=== PATIENT | male | born 1945 | race Caucasian/White ===

== ENCOUNTER 2016-12-09 13:48 | Day surgery (SDC) | payer OTHER ==
[~2016-12-09] VITALS: Ht 165.1 cm; Wt 76.2 kg
[~2016-12-09 13:48] MED LIST: AMLODIPINE BESY10 MG PO; APRESOLINE10 MG PO; APRESOLINE25 MG PO; APRESOLINE50 MG PO; ATIVAN0.5 MG PO; Aspirin Chewable PO; BUTALBITAL-APA1 EACH PO; BYSTOLIC10 MG PO; BYSTOLIC2.5 MG PO; Bystolic PO; CALCIUM ACETAT667 MG PO; CARDURA2 M1 PO; CARDURA4 MG PO; CARDURA8 MG PO; CATAPRES0.1 MG PO; CLONIDINE HCL0.1 MG PO; DIALYVITE 3,001 EACH PO; DIALYVITE TABL1 EACH PO; DIOVAN160 MG PO; DOXAZOSIN MESYLA4 MG PO; DOXAZOSIN MESYLA8 MG PO; FENTANYL1 EAC4 TD; FIORICET,ESG1 TABLET PO; FLOMAX0.4 MG PO; FOSRENOL1000 MG PO; FOSRENOL500 MG PO; HYDRALAZINE HCL50 MG PO; LABETALOL HCL200 MG PO; LASIX20 MG PO; LASIX40 MG PO; LEVEMIR FL100 UNIT/1 SC; LEVEMIR FL100 UNITS/ SC; LEVEMIR100 UNIT/2 SC; LISINOPRIL10 MG PO; LISINOPRIL20 MG PO; LO-DOSE ASPIRIN81 M1 PO; LUNESTA2 MG PO; Lasix PO; MIRALAX17 GM PO; MIRALAX255 GM PO; NIFEDICAL XL30 MG PO; NIFEDIPINE ER60 MG PO; NOVOLOG 10100 UNITS/ SC; NOVOLOG PE100 UNITS/ SC; Norvasc PO; PERCOCET 5/31 TABLET PO; PLAVIX75 MG PO; PRANDIN1 MG PO; PRINIVIL10 MG PO; PROSCAR5 MG PO; PROTONIX40 MG PO; PULMICORT FLE180 MCG IH; Plavix PO; RENVELA800 MG PO; RESTORIL15 MG PO; SENSIPAR30 MG PO; SPIRIVA1 INHALATI IH; ST. JOSEPH ASPI81 MG PO; SYMBICORT60 INHALAT IH; Symbicort 160-4.5 mc IH; TRADJENTA5 MG PO; TRAMADOL HCL50 MG PO; TRIAMTERENE-HC1 EACH PO; TYLENOL EXTRA500 MG PO; VITAMIN D2000 UNIT PO; VITAMIN D32000 UNI1 PO; Vicodin,Norco 5/325 PO; ZESTRIL10 MG PO; ZETIA10 MG PO
[2016-12-09 14:25] LABS: HEMATOCRIT 29.5 % (38.0-50.0); MCH 30.7 PG (29.0-34.0); MCHC 33.9 G/DL (30.0-36.0); MCV 90.5 FL (86-99); MEAN PLAT.VOLUME 9.7 uM^3 (9.0-12.4); PLATELET COUNT 261 K/uL (156-360); RBC DIS.WIDTH-CV 13.6 % (11.8-14.6); RBC DIS.WIDTH-SD 43.9 % (39-53); RED BLOOD COUNT 3.26 M/uL (4.00-5.50); WHITE BLOOD COUNT 11.4 K/uL (4.1-10.2)
[2016-12-09 14:50] LABS: ANION GAP 9 MEQ/L (2-14); CHLORIDE 105 MEQ/L (99-109); GFR ESTIMATE (CALCULATED) 11 mL/min/; GLUCOSE 73 mg/dL (70-99); POTASSIUM 4.9 MEQ/L (3.7-5.4); SAMPLE HEMOLYSIS CHECK 0; SAMPLE ICTERIC CHECK 0; SAMPLE LIPEMIA CHECK 0; SODIUM 140 MEQ/L (136-147); UREA NITROGEN (BUN) 70 mg/dL (9-23)
[2016-12-09] MEDS ORDERED: VITAMIN D31000 UNIT PO (15:07)
[2016-12-09 15:09] VITALS: BP 149/77
[2016-12-09 15:13] LABS: POINT-OF-CARE METER ID UU14174212
[2016-12-09 17:09] LABS: POINT-OF-CARE METER ID UU14174212
[2016-12-09 19:53] VITALS: BP 165/72
[2016-12-09 20:35] VITALS: BP 145/79
[2016-12-12] MEDS ORDERED: LASIX80 MG PO (11:20)
== END 2016-12-09 21:10 | disposition home or self-care (01) ==
LOC: SDC 13:48
PROVIDERS: Surgery
PROC: 0WWG43Z Revision of Infusion Device in Peritoneal Cavity, Percutaneous Endoscopic Approach (ICD-10-PCS; principal; 2016-12-09)
DX: T85.621A Displacement of intraperitoneal dialysis catheter, initial encounter (principal); I12.0 Hypertensive chronic kidney disease with stage 5 chronic kidney disease or end stage renal disease; E11.22 Type 2 diabetes mellitus with diabetic chronic kidney disease; N18.6 End stage renal disease; Z99.2 Dependence on renal dialysis; I25.10 Atherosclerotic heart disease of native coronary artery without angina pectoris; Z98.61 Coronary angioplasty status; J44.9 Chronic obstructive pulmonary disease, unspecified; I35.0 Nonrheumatic aortic (valve) stenosis; I65.29 Occlusion and stenosis of unspecified carotid artery; I73.9 Peripheral vascular disease, unspecified; I67.89 Other cerebrovascular disease; Z86.73 Personal history of transient ischemic attack (TIA), and cerebral infarction without residual deficits; Z87.891 Personal history of nicotine dependence; Z79.82 Long term (current) use of aspirin; Z79.4 Long term (current) use of insulin; Z79.02 Long term (current) use of antithrombotics/antiplatelets; Z88.8 Allergy status to other drugs, medicaments and biological substances; Z80.9 Family history of malignant neoplasm, unspecified; Z82.49 Family history of ischemic heart disease and other diseases of the circulatory system; Z88.7 Allergy status to serum and vaccine; Y83.1 Surgical operation with implant of artificial internal device as the cause of abnormal reaction of the patient, or of later complication, without mention of misadventure at the time of the procedure
CPT/HCPCS: 80048; 82948; 85027; 93005; 94640; J0690; J1100; J1170; J2405; J2710; J3010

== ENCOUNTER 2016-12-12 13:37 | Day surgery (SDC) | payer OTHER ==
[~2016-12-12] VITALS: Ht 165.1 cm; Wt 77.0 kg
[~2016-12-12 13:37] MED LIST changes: +LASIX80 MG PO; +VITAMIN D31000 UNIT PO
[2016-12-12 14:02] VITALS: BP 178/84
[2016-12-12 14:20] LABS: HEMATOCRIT 29.6 % (38.0-50.0); MCH 30.9 PG (29.0-34.0); MCHC 34.1 G/DL (30.0-36.0); MCV 90.5 FL (86-99); MEAN PLAT.VOLUME 9.7 uM^3 (9.0-12.4); PLATELET COUNT 222 K/uL (156-360); RED BLOOD COUNT 3.27 M/uL (4.00-5.50); WHITE BLOOD COUNT 8.1 K/uL (4.1-10.2)
[2016-12-12 14:46] LABS: ANION GAP 10 MEQ/L (2-14); CHLORIDE 102 MEQ/L (99-109); GFR ESTIMATE (CALCULATED) 13 mL/min/; POTASSIUM 4.8 MEQ/L (3.7-5.4); SAMPLE HEMOLYSIS CHECK 0; SAMPLE ICTERIC CHECK 0; SAMPLE LIPEMIA CHECK 0; SODIUM 137 MEQ/L (136-147); UREA NITROGEN (BUN) 72 mg/dL (9-23)
[2016-12-12 14:49] LABS: GLUCOSE 93 mg/dL (70-99)
[2016-12-12 19:32] LABS: POINT-OF-CARE METER ID UU14174212
[2016-12-12 22:55] VITALS: BP 158/72
[2016-12-12 23:51] VITALS: BP 162/74
== END 2016-12-13 00:05 | disposition home or self-care (01) ==
LOC: SDC 13:37
PROVIDERS: Surgery
DX: T85.691A Other mechanical complication of intraperitoneal dialysis catheter, initial encounter (principal); Y83.8 Other surgical procedures as the cause of abnormal reaction of the patient, or of later complication, without mention of misadventure at the time of the procedure; Z99.2 Dependence on renal dialysis; I12.0 Hypertensive chronic kidney disease with stage 5 chronic kidney disease or end stage renal disease; E11.22 Type 2 diabetes mellitus with diabetic chronic kidney disease; N18.6 End stage renal disease; R01.1 Cardiac murmur, unspecified
CPT/HCPCS: 80048; 82948; 85027; C1750; J0690; J1170; J3010

== ENCOUNTER 2016-12-16 10:25 | Inpatient (IN) | payer OTHER ==
[~2016-12-16] VITALS: Ht 165.1 cm; Wt 82.0 kg
[2016-12-16 11:51] LABS: HEMATOCRIT 28.2 % (38.0-50.0); MCH 30.8 PG (29.0-34.0); MCV 90.4 FL (86-99); MEAN PLAT.VOLUME 10.2 uM^3 (9.0-12.4); PLATELET COUNT 222 K/uL (156-360); RBC DIS.WIDTH-CV 13.7 % (11.8-14.6); RBC DIS.WIDTH-SD 43.8 % (39-53); RED BLOOD COUNT 3.12 M/uL (4.00-5.50); WHITE BLOOD COUNT 8.4 K/uL (4.1-10.2)
[2016-12-16 12:02] LABS: CHLORIDE 103 mEq/L (99-109); POTASSIUM 5.6 mEq/L (3.7-5.4); SODIUM 134 mEq/L (136-147)
[2016-12-16 12:04] LABS: GLUCOSE 138 mg/dL (70-99)
[2016-12-16 12:06] LABS: ANION GAP 12 MEQ/L (2-14)
[2016-12-16 12:08] LABS: GFR ESTIMATE (CALCULATED) 12 mL/min/
[2016-12-16 12:09] LABS: UREA NITROGEN (BUN) 70 mg/dL (9-23)
[2016-12-16] MEDS ORDERED: CARDURA8 MG PO (14:10)
[2016-12-16] MEDS ORDERED: DIALYVITE 3,001 EACH PO (14:15)
[2016-12-16 16:03] LABS: ADD MIUA? NO; BILIRUBIN NEGATIVE; BLOOD NEGATIVE; COLOR YELLOW ((YELLOW)); GLUCOSE (STRIP) 100; KETONES NEGATIVE; LEUKOCYTES NEGATIVE; NITRITE NEGATIVE; PH, URINE 7.5 (5-8); PROTEIN (STRIP) 30; UCUL ADDED? NO; UROBILINOGEN 0.2 MG/DL (0.2-1.0)
[2016-12-16] MEDS ORDERED: ZESTRIL10 MG PO (17:41)
[2016-12-16 22:27] VITALS: BP 134/67
[2016-12-17 06:20] LABS: HEMATOCRIT 24.7 % (38.0-50.0); MCV 91.1 FL (86-99); MEAN PLAT.VOLUME 9.9 uM^3 (9.0-12.4); PLATELET COUNT 206 K/uL (156-360); RBC DIS.WIDTH-CV 14.3 % (11.8-14.6); RBC DIS.WIDTH-SD 47.4 % (39-53); RED BLOOD COUNT 2.71 M/uL (4.00-5.50); WHITE BLOOD COUNT 6.8 K/uL (4.1-10.2)
[2016-12-17 06:32] LABS: POINT-OF-CARE METER ID UU13113725
[2016-12-17 06:56] LABS: ANION GAP 6 MEQ/L (2-14); CHLORIDE 101 MEQ/L (99-109); GLUCOSE 181 mg/dL (70-99); POTASSIUM 4.5 MEQ/L (3.7-5.4); SAMPLE HEMOLYSIS CHECK 0; SAMPLE ICTERIC CHECK 0; SAMPLE LIPEMIA CHECK 0; SODIUM 136 MEQ/L (136-147); UREA NITROGEN (BUN) 38 mg/dL (9-23)
[2016-12-17 06:59] LABS: GFR ESTIMATE (CALCULATED) 20 mL/min/
[2016-12-17 12:49] LABS: POINT-OF-CARE METER ID UU13113725
[2016-12-17 13:03] VITALS: BP 138/63
[2016-12-17 15:33] LABS: POINT-OF-CARE METER ID UU13113725
[2016-12-17 20:45] LABS: POINT-OF-CARE METER ID UU13113725
[2016-12-17 23:09] VITALS: BP 151/70
[2016-12-18 05:50] LABS: POINT-OF-CARE METER ID UU13113725
[2016-12-18 07:53] VITALS: BP 140/67
[2016-12-18 10:09] LABS: HBSG INDEX 0.16
[2016-12-18 10:10] LABS: AHBS INDEX 6.57; HEPATITIS B SURFACE ANTIBODY Nonreactive
[2016-12-18 10:11] LABS: ANTI-HEPATITIS B CORE (IGM) Nonreactive; HBC IgM INDEX 0.07
[2016-12-18 11:26] LABS: POINT-OF-CARE METER ID UU13113725
[2016-12-18 15:18] VITALS: BP 134/67
[2016-12-18 16:31] LABS: POINT-OF-CARE METER ID UU13113725
[2016-12-18 23:12] VITALS: BP 169/73
[2016-12-19 06:53] LABS: EOSINOPHIL COUNT 0.5 K/uL (0-0.3); HEMATOCRIT 23.4 % (38.0-50.0); IMMATURE GRANULOCYTE COUNT 0.1 K/uL; LYMPHOCYTE COUNT 1.6 K/uL (1.0-2.8); MCH 31.1 PG (29.0-34.0); MCHC 34.2 G/DL (30.0-36.0); MCV 91.1 FL (86-99); MEAN PLAT.VOLUME 10.2 uM^3 (9.0-12.4); MONOCYTE (%) 7.1 % (3-12); MONOCYTE COUNT 0.6 K/uL (0-0.8); NEUTROPHIL (%) 69.2 % (45-76); NEUTROPHIL COUNT 6.2 K/uL (1.8-6.4); PLATELET COUNT 217 K/uL (156-360); RBC DIS.WIDTH-CV 13.8 % (11.8-14.6); RBC DIS.WIDTH-SD 45.8 % (39-53); RED BLOOD COUNT 2.57 M/uL (4.00-5.50)
[2016-12-19 07:05] LABS: ANION GAP 6 MEQ/L (2-14); CHLORIDE 104 MEQ/L (99-109); GFR ESTIMATE (CALCULATED) 15 mL/min/; SAMPLE HEMOLYSIS CHECK 0; SAMPLE ICTERIC CHECK 0; SAMPLE LIPEMIA CHECK 0; SODIUM 138 MEQ/L (136-147); UREA NITROGEN (BUN) 41 mg/dL (9-23)
[2016-12-19 07:06] LABS: GLUCOSE 75 mg/dL (70-99)
[2016-12-19 07:47] LABS: POINT-OF-CARE METER ID UU13113725
[2016-12-19 09:26] VITALS: BP 163/76
[2016-12-19 12:59] LABS: POINT-OF-CARE METER ID UU13113675
[2016-12-19 16:04] VITALS: BP 177/81
[2016-12-19 19:30] VITALS: BP 165/68
[2016-12-19 23:29] VITALS: BP 148/71
[2016-12-20 06:51] LABS: EOSINOPHIL (%) 4.1 % (0-5); EOSINOPHIL COUNT 0.4 K/uL (0-0.3); HEMATOCRIT 23.2 % (38.0-50.0); IMMATURE GRANULOCYTE (%) 0.6 % (0.0-0.7); IMMATURE GRANULOCYTE COUNT 0.1 K/uL; LYMPHOCYTE COUNT 0.8 K/uL (1.0-2.8); MCH 32.5 PG (29.0-34.0); MCHC 35.3 G/DL (30.0-36.0); MCV 92.1 FL (86-99); MEAN PLAT.VOLUME 10.3 uM^3 (9.0-12.4); MONOCYTE (%) 9.6 % (3-12); NEUTROPHIL (%) 77.5 % (45-76); PLATELET COUNT 249 K/uL (156-360); RBC DIS.WIDTH-CV 14.3 % (11.8-14.6); RBC DIS.WIDTH-SD 47.2 % (39-53); RED BLOOD COUNT 2.52 M/uL (4.00-5.50); WHITE BLOOD COUNT 10.4 K/uL (4.1-10.2)
[2016-12-20 07:30] LABS: ANION GAP 8 MEQ/L (2-14); CHLORIDE 102 MEQ/L (99-109); GFR ESTIMATE (CALCULATED) 14 mL/min/; POTASSIUM 4.4 MEQ/L (3.7-5.4); SAMPLE HEMOLYSIS CHECK 0; SAMPLE ICTERIC CHECK 0; SAMPLE LIPEMIA CHECK 0; SODIUM 136 MEQ/L (136-147); UREA NITROGEN (BUN) 42 mg/dL (9-23)
[2016-12-20 07:33] LABS: GLUCOSE 221 mg/dL (70-99)
[2016-12-20 08:02] VITALS: BP 178/84
[2016-12-20 11:30] LABS: POINT-OF-CARE METER ID UU13113725
[2016-12-20 16:32] VITALS: BP 162/80
[2016-12-20 17:15] LABS: POINT-OF-CARE METER ID UU13113725
[2016-12-20 21:13] LABS: POINT-OF-CARE METER ID UU13113725
[2016-12-20 22:44] VITALS: BP 140/65
[2016-12-21 05:42] LABS: POINT-OF-CARE METER ID UU13113725
[2016-12-21 06:49] LABS: BASOPHIL COUNT 0.1 K/uL (0-0.1); EOSINOPHIL COUNT 0.6 K/uL (0-0.3); HEMATOCRIT 24.8 % (38.0-50.0); IMMATURE GRANULOCYTE (%) 0.6 % (0.0-0.7); IMMATURE GRANULOCYTE COUNT 0.1 K/uL; LYMPHOCYTE COUNT 1.4 K/uL (1.0-2.8); MCH 31.1 PG (29.0-34.0); MCHC 33.9 G/DL (30.0-36.0); MCV 91.9 FL (86-99); MEAN PLAT.VOLUME 10.2 uM^3 (9.0-12.4); MONOCYTE (%) 5.5 % (3-12); MONOCYTE COUNT 0.6 K/uL (0-0.8); NEUTROPHIL (%) 75.6 % (45-76); NEUTROPHIL COUNT 8.5 K/uL (1.8-6.4); PLATELET COUNT 290 K/uL (156-360); RBC DIS.WIDTH-CV 14.2 % (11.8-14.6); RBC DIS.WIDTH-SD 46.6 % (39-53); WHITE BLOOD COUNT 11.2 K/uL (4.1-10.2)
[2016-12-21 07:15] LABS: ANION GAP 7 MEQ/L (2-14); CHLORIDE 100 MEQ/L (99-109); GFR ESTIMATE (CALCULATED) 15 mL/min/; GLUCOSE 211 mg/dL (70-99); POTASSIUM 4.2 MEQ/L (3.7-5.4); SAMPLE HEMOLYSIS CHECK 0; SAMPLE ICTERIC CHECK 0; SAMPLE LIPEMIA CHECK 0; SODIUM 136 MEQ/L (136-147); UREA NITROGEN (BUN) 38 mg/dL (9-23)
[2016-12-21 08:15] VITALS: BP 173/77
[2016-12-21] MEDS ORDERED: FOSRENOL1000 MG PO (11:06)
[2016-12-21] MEDS ORDERED: ENDOCET 5-3251 EACH PO (11:06)
[2016-12-21 11:39] LABS: POINT-OF-CARE METER ID UU13113725
== END 2016-12-21 12:22 | disposition home or self-care (01) | DRG 939 ==
LOC: EME 10:25 → 5EAST 16:39 → EDOF 16:39 → 5EAST 21:58
PROVIDERS: Emergency Medicine; Internal Medicine; Internal Medicine Nephrology
PROC: 5A1D60Z (ICD-10-PCS; 2016-12-16)
PROC: 02HV33Z Insertion of Infusion Device into Superior Vena Cava, Percutaneous Approach (ICD-10-PCS; 2016-12-17)
PROC: B548ZZA Ultrasonography of Superior Vena Cava, Guidance (ICD-10-PCS; 2016-12-17)
PROC: 3E1M39Z Irrigation of Peritoneal Cavity using Dialysate, Percutaneous Approach (ICD-10-PCS; principal; 2016-12-19)
PROC: 0WWG43Z Revision of Infusion Device in Peritoneal Cavity, Percutaneous Endoscopic Approach (ICD-10-PCS; principal; 2016-12-19)
DX: T85.838A Hemorrhage due to other internal prosthetic devices, implants and grafts, initial encounter (principal); N18.6 End stage renal disease; E87.2 Acidosis; I12.0 Hypertensive chronic kidney disease with stage 5 chronic kidney disease or end stage renal disease; E87.5 Hyperkalemia; E11.22 Type 2 diabetes mellitus with diabetic chronic kidney disease; I25.10 Atherosclerotic heart disease of native coronary artery without angina pectoris; J44.9 Chronic obstructive pulmonary disease, unspecified; Z79.4 Long term (current) use of insulin; Z79.01 Long term (current) use of anticoagulants; I25.2 Old myocardial infarction; Z87.891 Personal history of nicotine dependence; Z86.73 Personal history of transient ischemic attack (TIA), and cerebral infarction without residual deficits; Z90.49 Acquired absence of other specified parts of digestive tract; Z95.5 Presence of coronary angioplasty implant and graft
CPT/HCPCS: 71010; 74176; 80048; 81003; 82948; 85025; 85027; 86705; 86706; 86850; 86900; 86901; 87070; 87205; 87340; 89051; 94640; 94640 76; 99281; 99284; C1752; J0330; J0690; J0881; J1170; J1644; J1815; J2250; J2270; J2405; J3010

== ENCOUNTER 2017-01-10 07:44 | Day surgery (SDC) | payer OTHER ==
[~2017-01-10 07:44] MED LIST changes: +ENDOCET 5-3251 EACH PO
[2017-01-10 08:09] LABS: POINT-OF-CARE METER ID UU13113696
== END 2017-01-10 10:00 | disposition home or self-care (01) ==
LOC: CATH 07:44
PROVIDERS: Surgery
PROC: 02HV33Z Insertion of Infusion Device into Superior Vena Cava, Percutaneous Approach (ICD-10-PCS; principal; 2017-01-10)
DX: N18.6 End stage renal disease (principal); Z99.2 Dependence on renal dialysis
CPT/HCPCS: 82948; C1894; J0690; J1644; J2250; J3010; S0020

== ENCOUNTER 2017-01-25 14:25 | Day surgery (SDC) | payer OTHER ==
[2017-01-25] MEDS ORDERED: LO-DOSE ASPIRIN81 M2 PO (14:42)
[2017-01-25 15:05] LABS: POINT-OF-CARE METER ID UU13113696
[2017-01-25 15:54] LABS: POINT-OF-CARE METER ID UU13113819
== END 2017-01-25 19:55 | disposition home or self-care (01) ==
LOC: CATH 14:25
PROVIDERS: Surgery
DX: T82.598A Other mechanical complication of other cardiac and vascular devices and implants, initial encounter (principal); Y83.1 Surgical operation with implant of artificial internal device as the cause of abnormal reaction of the patient, or of later complication, without mention of misadventure at the time of the procedure; N19 Unspecified kidney failure; Z99.2 Dependence on renal dialysis
CPT/HCPCS: 82948; C1750; J0690; J1644; J2250; J3010; J7050; S0020

== ENCOUNTER → 2017-02-21 | Outpatient (CLI) | payer OTHER ==
[~2017-02-21] MED LIST changes: +LO-DOSE ASPIRIN81 M2 PO
== END | disposition home or self-care (01) ==
LOC: AMB 02-20 08:30
PROC: 02PYX3Z Removal of Infusion Device from Great Vessel, External Approach (ICD-10-PCS; principal; 2017-02-21)
DX: Z45.2 Encounter for adjustment and management of vascular access device (principal); N18.6 End stage renal disease; Z99.2 Dependence on renal dialysis

== ENCOUNTER 2017-05-17 06:35 | Day surgery (SDC) | payer OTHER ==
[~2017-05-17] VITALS: Ht 165.1 cm; Wt 82.0 kg
[2017-05-17 07:14] LABS: POINT-OF-CARE METER ID UU13113694
[2017-05-17 07:35] VITALS: BP 162/72
[2017-05-17 10:21] LABS: POINT-OF-CARE METER ID UU13113675
[2017-05-17 10:45] VITALS: BP 130/64
[2017-05-17 11:25] VITALS: BP 135/59
== END 2017-05-17 11:25 | disposition home or self-care (01) ==
LOC: SDC 06:35
PROVIDERS: Ophthalmology
PROC: 08NF3ZZ Release Left Retina, Percutaneous Approach (ICD-10-PCS; principal; 2017-05-17)
PROC: 08B53ZZ Excision of Left Vitreous, Percutaneous Approach (ICD-10-PCS; principal; 2017-05-17)
DX: H35.372 Puckering of macula, left eye (principal); J44.9 Chronic obstructive pulmonary disease, unspecified; I12.0 Hypertensive chronic kidney disease with stage 5 chronic kidney disease or end stage renal disease; N18.6 End stage renal disease; Z99.2 Dependence on renal dialysis; I69.354 Hemiplegia and hemiparesis following cerebral infarction affecting left non-dominant side; I25.2 Old myocardial infarction; Z87.891 Personal history of nicotine dependence; Z79.82 Long term (current) use of aspirin; Z95.5 Presence of coronary angioplasty implant and graft
CPT/HCPCS: 82948; J0690; J0713; J2795; J3300